=== PATIENT | female | born 1995 | race Two or more races ===

== ENCOUNTER 2019-10-22 19:37 | Emergency (ER) | payer MEDICAID ==
[~2019-10-22] VITALS: Ht 165.1 cm; Wt 27.2 kg
[2019-10-22 19:50] VITALS: BP 116/73
--- NOTE | 2019-10-22 19:50 | NUR ---
ED Nurse Note: Pt ambulated into ed from home [place] rash and redness with itching over body x 4 days. Pt is [place] speaking only. Pt denies new soaps, foods, or medications causing reaction. Pt states that she recently had a telehealth visit for allergic reaction and was prescribed predisone, hydrocortisone, tylenol, and benadryl and started taking medications today. Pt vss no ss of distress noted. Will continue to monitor. Awaiting ERMD at bedside.
--- NOTE | 2019-10-22 20:05 | NUR ---
ED Nurse Note: ERMD at bedside for inital assessment.
[2019-10-22] MEDS ORDERED: Solu-MEDROL 125mg Inj IM ONE (20:15)
[2019-10-22] MEDS ORDERED: DiphenhydrAMINE 50mg/ml Inj IM ONE (20:15)
--- NOTE | 2019-10-22 20:21 | Emergency Room Report ---
History of Present Illness General Chief Complaint: Allergic Reaction Source: Patient Present Illness HPI Disclaimer: Please note that this report is being documented using [employer] technology. This can lead to erroneous entry secondary to incorrect interpretation by the dictating instrument. HPI: 24-year-old female presents from home due to possible allergic reaction. Patient reports a rash to the arms trunk and lower extremities for the past 4 days. She did have a consult today and was prescribed oral steroids and antihistamines and has taken 1 dose. She presents because she is still having itching. No shortness of breath, she denies any new medications soaps lotions creams or detergents. He is never had this type of rash before PMH: Patient denies past medical history PSH: Reviewed Social Hx: Patient denies smoking drinking or illicit drug use Allergies: Coded Allergies: No Known Allergies (Unverified , 10/22/19) COVID-19 Screening Contact w/high risk pt: No Experienced COVID-19 symptoms?: No COVID-19 Testing performed TUBING DRIER: No Patient History Reviewed Nursing Documentation: PMH: Agreed; PSxH: Agreed Nursing Documentation-PMH Past Medical History: No Stated History Review of Systems All Other Systems: negative except mentioned in HPI Physical Exam Vital Signs Date Time Temp Pulse Resp B/P (MAP) Pulse Ox O2 Delivery O2 Flow Rate FiO2 10/22/19 19:40 98.6 94 16 116/73 (87) 97 Room Air Sp02 EP Interpretation: reviewed, normal General Appearance: well appearing, no apparent distress Head: normocephalic, atraumatic Eyes: bilateral eye PERRL, bilateral eye EOMI ENT: hearing grossly normal, moist mucus membranes Neck: full range of motion, supple Respiratory: lungs clear, normal breath sounds, no rhonchi, no respiratory distress, no retraction, no wheezing Cardiovascular #1: normal peripheral pulses, regular rate, rhythm, no murmur Gastrointestinal: non tender, soft, non-distended, no guarding Neurologic: alert, oriented x3, no focal defects Skin: warm/dry, other - Erythematous rash noted to neck flexural areas of arms and trunk. Medical Decision Making Diagnostic Impression: Primary Impression: Allergic reaction ER Course Patient presents with suspected allergic reaction. Differential included but not limited to urticaria, eczema, less likely cellulitis. Patient was in no acute distress. Rash did affect the flexural areas. She had started prednisone and topical steroids today. In the ER I will give 1 shot of Benadryl and Solu-Medrol and then have patient continue her outpatient medications as prescribed. Instructed to follow-up with PMD. Return precautions were given. Last Vital Signs Date Time Temp Pulse Resp B/P (MAP) Pulse Ox O2 Delivery O2 Flow Rate FiO2 10/22/19 19:50 98.6 94 16 116/73 97 Room Air Disposition: HOME, SELF-CARE Condition: Stable Patient Instructions: Anaphylactic Reaction, [id number] Additional Instructions: Patient is instructed to follow-up with her primary care doctor, primary care clinic or [facility] in 1 to 2 days. Patient instructed to return for any worsening symptoms or concerns. Disclaimer: Please note that this report is being documented using [employer] technology. This can lead to erroneous entry secondary to incorrect interpretation by the dictating instrument. Russell Olvera M.D. Oct 22, 2019 20:21
--- NOTE | 2019-10-22 20:21 | NUR ---
ED Nurse Note: all medications administered, pt tolerated well no ss of distress noted. will continue to monitor.
[2019-10-22 20:27] VITALS: BP 120/70
--- NOTE | 2019-10-22 20:27 | NUR ---
ER DISCHARGE NOTE: Patient is cleared to be discharged per ERMD, pt is aox4, on room air, with stable vital signs. pt was given dc and prescription instructions, pt was able to verbalize understanding, pt id band removed without complications. pt is able to ambulate with steady gait. pt took all belongings.
== END 2019-10-22 20:27 | disposition home or self-care (01) ==
LOC: EMR 20:06
DX: T78.40XA Allergy, unspecified, initial encounter (principal); X58.XXXA Exposure to other specified factors, initial encounter
CPT/HCPCS: 96372; J1200; J2930; Z7502; 99283

== ENCOUNTER 2019-10-24 13:22 | Emergency (ER) | payer MEDICAID ==
[2019-10-24] MEDS ORDERED: EPINEPHrine 1mg/1ml Amp IM ONE ×2 (14:15)
[2019-10-24] MEDS ORDERED: Solu-MEDROL 125mg Inj IM ONE (15:00)
[2019-10-24] MEDS ORDERED: DiphenhydrAMINE & Zinc 28g Cream TOPIC ONE (15:00)
[2019-10-24] MEDS ORDERED: TRIAMCINOLONE A15 G1 TP (15:50)
[2019-10-24] MEDS ORDERED: ATARAX25 MG ORAL (15:50)
[2019-10-24] MEDS ORDERED: PREDNISONE20 MG ORAL (15:50)
== END 2019-10-24 15:55 | disposition home or self-care (01) ==
DX: T78.40XA Allergy, unspecified, initial encounter (principal); X58.XXXA Exposure to other specified factors, initial encounter; R21 Rash and other nonspecific skin eruption
CPT/HCPCS: 96372; J0171; J2930; Z7502